=== PATIENT | male | born 1960 | race Caucasian/White ===

== ENCOUNTER 2020-08-18 08:59 | Outpatient (REF) | payer SELFPAY | END 2020-08-18 09:00 | disposition home or self-care (01) | LOC: HO.HAP 08:59 | PROVIDERS: PCP Internal Medicine; Referring Provider Internal Medicine; Visit Provider Internal Medicine | DX: Z13.89 Encounter for screening for other disorder (principal) | CPT/HCPCS: 92700 ==

== ENCOUNTER 2020-09-06 15:26 | Outpatient (REF) | payer SELFPAY | END 2020-09-06 15:27 | disposition home or self-care (01) | LOC: HO.HAP 15:26 | PROVIDERS: Visit Provider Internal Medicine | DX: H90.3 Sensorineural hearing loss, bilateral (principal); Z46.1 Encounter for fitting and adjustment of hearing aid | CPT/HCPCS: V5264 ==

== ENCOUNTER 2020-10-17 15:00 | Outpatient (REF) | payer SELFPAY | END 2020-10-17 15:01 | disposition home or self-care (01) | LOC: HO.HAP 15:00 | PROVIDERS: Visit Provider Internal Medicine | DX: Z13.89 Encounter for screening for other disorder (principal) ==

== ENCOUNTER 2020-10-19 11:46 | Outpatient (REF) | payer SELFPAY | END 2020-10-19 11:47 | disposition home or self-care (01) | LOC: HO.HAP 11:46 | PROVIDERS: Visit Provider Internal Medicine | DX: Z13.89 Encounter for screening for other disorder (principal) ==

== ENCOUNTER 2020-10-26 09:00 | Outpatient (REF) | payer SELFPAY | END 2020-10-26 09:01 | disposition home or self-care (01) | LOC: HO.HAP 09:00 | PROVIDERS: Visit Provider Internal Medicine | DX: Z13.89 Encounter for screening for other disorder (principal) ==

== ENCOUNTER 2021-04-17 09:30 | Outpatient (REF) | payer SELFPAY ==
--- NOTE | 2021-04-17 09:48 | MHC.AU.P13 ---
Hearing Instrument Maintenance Date of Visit: 04/17/21 Right Ear: Sponsorship Manager: Phonak Model: Versata M BTE Serial Number: [id number] Repair Warranty: Loss and Damage Warranty: Battery Size: 13 Color: JASON Tubing: Size 3B slim tube Type of Mold: Slim tip #[id number] Warranty 12/26/2020 Type of Wax Guard: None Dispensed By: [facility] Date of Fittin08/25/2009 Left Ear: Sponsorship Manager: Phonak Model: Versata M BTE Serial Number: [id number] Repair Warranty: Loss and Damage Warranty: Battery Size: 13 Color: JASON Tubing: Size 3B slim tube Type of Mold: Slim tip #[id number] Warranty 12/26/2020 Type of Wax Guard: None Dispensed By: [facility] Date of Fittin08/25/2009 Follow-Up Summary: VALDEZ's dropped off for maintenance. Hearing aids and slim tips cleaned, #3 slim tubes replaced, sofia covers replaced, both amplifying clearly. Recommendations: Recommendations: Hearing instrument follow-up or maintenance as needed. Diagnosis Code(s): Primary Diagnosis: H90.3 Bilateral Sensorineural Hearing Loss Signature: Provider: SHARONDA Junior-HIS
== END 2021-04-17 09:31 | disposition home or self-care (01) ==
LOC: HO.HAP 09:30
PROVIDERS: Visit Provider Internal Medicine
DX: Z46.1 Encounter for fitting and adjustment of hearing aid (principal); H90.3 Sensorineural hearing loss, bilateral
CPT/HCPCS: 99499

== ENCOUNTER 2021-08-13 09:18 | Outpatient (REF) | payer BC, SELFPAY ==
--- NOTE | 2021-08-15 15:34 | MHC.AU.AHA ---
Adult Audiological Evaluation Date of Visit: 08/13/21 Machine Zipper Trimmer Used: Not Applicable Reason for Appointment: Audiologic re-evaluation prior to obtaining new hearing aids. Previous Hearing Test Results: 03/24/2014 [facility] Bilateral borderline normal sloping to severe sensorineural hearing loss with 96% speech understanding for the right ear and 100% for the left ear. 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 Medication List: Lisinopril, Metformin, Aspirin, Atorvastatin, Jardiance, Insulin Hearing Instrument History- Right Ear: Automotive Internet Sales Manager: MeetMeTix Model: YOOWALK Serial Number: [id number] Battery Size: 13 Repair Warranty: Dispensed By: [facility] Date of Fittin08/25/2009 Hearing Instrument History- Left Ear: Automotive Internet Sales Manager: [employer]ix Model: YOOWALK Serial Number: [id number] Battery Size: 13 Warranty: Dispensed By: [facility] Date of Fittin08/25/2009 Otoscopy: Right Ear: Unremarkable Left Ear: Unremarkable Tympanometry: Tympanometry performed due to: To assess integrity of the middle ear system Right Ear: Normal Middle Ear System (Type A) Left Ear: Normal Middle Ear System (Type A) Hearing Evaluation: Transducer(s) Used: Insert Earphones Bone Conduction Method: Conventional Audiometry Stimuli Used: Pure Tones Right Ear: Description of Hearing: Borderline normal at 250 Hz, sloping to a severe high frequency sensorineural hearing loss. Left Ear: Description of Hearing: Mild sloping to severe sensorineural hearing loss. Speech Recognition Threshold (SRT): Method Used: Monitored Live Voice Stimuli Used: Spondee Words Right Ear: 30 dB HL Left Ear: 35 dB HL Word Discrimination: Method: Recorded Lists Word Lists Used: NU-6 Right Ear: 88% at 70 dB HL Left Ear: 84% at 75 dB HL Comparison: Compared to the most recent evaluation: Thresholds have slightly decreased bilaterally. Word discrimination scores have slightly decreased bilaterally. Recommendations: Trial with amplification is recommended. Medical clearance from a physician is required before fitting. Hearing Aid Fitting appointment has been scheduled for 11/08/2021 Audiological re-evaluation in one year. Will send a reminder card. Diagnosis: Primary Diagnosis: H90.3 Bilateral Sensorineural Hearing Loss Services Performed: Comprehensive Audiological Evaluation (CPT 26007) Limited Otoacoustic Emissions (CPT 81012) Signature: Provider: Suhail Manley, CCC-A
--- NOTE | 2021-08-15 16:47 | MHC.AU.AHA ---
Adult Audiological Evaluation Date of Visit: 08/13/21 Vp Hr Diversity Used: Not Applicable Reason for Appointment: Audiologic re-evaluation prior to obtaining new hearing aids. Previous Hearing Test Results: 03/24/2014 [facility] Bilateral borderline normal sloping to severe sensorineural hearing loss with 96% speech understanding for the right ear and 100% for the left ear. 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 Medication List: Lisinopril, Metformin, Aspirin, Atorvastatin, Jardiance, Insulin Hearing Instrument History- Right Ear: Adzing And Boring Machine Helper: Insight Guru Model: [email or web address] Serial Number: [id number] Battery Size: 13 Repair Warranty: Dispensed By: [facility] Date of Fittin08/25/2009 Hearing Instrument History- Left Ear: Adzing And Boring Machine Helper: Insight Guru Model: [email or web address] Serial Number: [id number] Battery Size: 13 Warranty: Dispensed By: [facility] Date of Fittin08/25/2009 Otoscopy: Right Ear: Unremarkable Left Ear: Unremarkable Tympanometry: Tympanometry performed due to: To assess integrity of the middle ear system Right Ear: Normal Middle Ear System (Type A) Left Ear: Normal Middle Ear System (Type A) Hearing Evaluation: Transducer(s) Used: Insert Earphones Bone Conduction Method: Conventional Audiometry Stimuli Used: Pure Tones Right Ear: Description of Hearing: Borderline normal at 250 Hz, sloping to a severe high frequency sensorineural hearing loss. Left Ear: Description of Hearing: Mild sloping to severe sensorineural hearing loss. Speech Recognition Threshold (SRT): Method Used: Monitored Live Voice Stimuli Used: Spondee Words Right Ear: 30 dB HL Left Ear: 35 dB HL Word Discrimination: Method: Recorded Lists Word Lists Used: NU-6 Right Ear: 88% at 70 dB HL Left Ear: 84% at 75 dB HL Comparison: Compared to the most recent evaluation: Thresholds have slightly decreased bilaterally. Word discrimination scores have slightly decreased bilaterally. Recommendations: Trial with amplification is recommended. Medical clearance from a physician is required before fitting. Hearing Aid Fitting appointment has been scheduled for 11/08/2021 Audiological re-evaluation in one year. Will send a reminder card. Diagnosis: Primary Diagnosis: H90.3 Bilateral Sensorineural Hearing Loss Services Performed: Comprehensive Audiological Evaluation (CPT 46817) Limited Otoacoustic Emissions (CPT 87581) Signature: Provider: Suhail Manley, CCC-A
== END 2021-08-13 09:19 | disposition home or self-care (01) ==
LOC: HO.SH 09:18
PROVIDERS: Visit Provider Family Medicine
DX: H90.3 Sensorineural hearing loss, bilateral (principal)
CPT/HCPCS: 92557; 92567; 92587

== ENCOUNTER 2021-08-13 10:20 | Outpatient (REF) | payer SELFPAY ==
--- NOTE | 2021-08-13 11:13 | MHC.AU.MED ---
Medical Clearance for Hearing Instrumentation Date: 08/13/21 Patient Name: Ed Thomas Date of : 1960 Primary Care Provider: Referring Provider: Ed Elizabeth MD We have seen your patient on 08/13/21 and have determined that they are a candidate for amplification (See accompanying report). Specifically, they would benefit from: Hearing aid use in both ears There is a statute that addresses Medical Evaluation Requirements prior to fitting a patient with a hearing aid. According to [place] statute 265 CMR:6.03(1), (a) General. Except as provided in 265 CMR 6.03(1)(b), a freight separator shall not sell a hearing aid unless the prospective user has presented to the freight separator a written statement signed by a licensed physician that states that the patient's hearing loss has been medically evaluated and the patient may be considered a candidate for a hearing aid. The medical evaluation must have taken place within the preceding six months. Please note: Due to the [place] Statute referenced above, we cannot accept a signature other than that of a licensed physician. [employer] and PA signatures cannot be accepted. I am in agreement with the above recommendation. There is no medical contraindication for hearing instrumentation. Physician Signature Date Physician Name (Printed)
--- NOTE | 2021-08-17 11:05 | MHC.AU.HAS ---
Hearing Aid Evaluation Date of Visit: 08/13/21 Historical Information: Description of Hearing: Borderline normal/mild thresholds sloping to severe sensorineural hearing loss bilaterally Current personal amplification information, if applicable: 2008 Binaural Phonak Versata M with slim tubes and custom slim tips Summary: Patient needs new hearing aids to better facilitate communication as current aids are 12 years old and ComPilot is not working. Hearing Aid Prescription: Based on the individual?s shared listening needs, communication environments, dexterity, desire for connectivity, and personal preferences, the following prescription for amplification has been made: Right ear: Senior Accounts Payable Specialist: Phonak Model: Audeo P 90-13T Battery Size: 13 Color: Silver Dee Ginger Farmer: #2 Medium Tubing: Size 3B slim tube Type of Mold: Canal C-Shell Left ear: Senior Accounts Payable Specialist: Phonak Model: Audeo P 90-13T Battery Size: 13 Color: Silver Dee Ginger Farmer: #2 Medium Tubing: Size 1B slim tube Type of Mold: Canal C-Shell Plan of Care: Patient wishes to purchase hearing aids as prescribed Action Taken/Action Needed: Medical Clearance to be requested from PCP/ENT Comments: Will order canal C-Shells using scans on file from 10/2020 Hearing Aid Fitting scheduled for 11/08/2021 Primary Diagnosis: H90.3 Bilateral Sensorineural Hearing Loss Signature: Provider: Suhail Manley, GIORGI-A
== END 2021-08-13 10:21 | disposition home or self-care (01) ==
LOC: HO.HAP 10:20
PROVIDERS: Visit Provider Internal Medicine
DX: Z46.1 Encounter for fitting and adjustment of hearing aid (principal); H90.3 Sensorineural hearing loss, bilateral
CPT/HCPCS: 92591

== ENCOUNTER 2021-11-08 10:28 | Outpatient (REF) | payer SELFPAY | END 2021-11-08 10:29 | disposition home or self-care (01) | LOC: HO.HAP 10:28 | PROVIDERS: Visit Provider Internal Medicine | DX: Z46.1 Encounter for fitting and adjustment of hearing aid (principal); H90.3 Sensorineural hearing loss, bilateral | CPT/HCPCS: V5261 ==

== ENCOUNTER 2021-11-23 09:59 | Outpatient (REF) | payer SELFPAY ==
--- NOTE | 2021-11-23 10:46 | MHC.AU.HFU ---
Hearing Instrument Follow-Up- Binaural Date of Visit: 11/23/21 Right Ear: Polo Coach: Phonak Model: Audeo P 90-13T Serial Number: [id number] Repair Warranty: 11/24/2024 Loss and Damage Warranty: 11/24/2024 Battery Size: 13 Color: Silver Dee Manufacturing Automation Engineer: #2 Medium Type of Mold: Canal C-Shell #[id number] Warranty 12/24/2021 Type of Wax Guard: CeruStop Dispensed By: [facility] Date of Fittin11/08/2021 Left Ear: Polo Coach: Phonak Model: Audeo P 90-13T Serial Number: [id number] Repair Warranty: 11/24/2024 Loss and Damage Warranty: 11/24/2024 Battery Size: 13 Color: Silver Dee Manufacturing Automation Engineer: #2 Medium Type of Mold: Canal C-Shell #[id number] Warranty 12/24/2021 Type of Wax Guard: CeruStop Dispensed By: [facility] Date of Fittin11/08/2021 Follow-Up Summary: Patient is doing very well with new aids. He noticed recently he was not able to hear an aluminum nail hit the concrete and still has to keep the volume of the TV up for better understanding. His seat is likely 12 feet from the TV and recommend either trying to connect his aids to his Smart TV or pair bluetooth speakers placed next to his seat to see if TV speech understanding improves. Increased 7034-8683 Hz overall and MPO 4 dB and now he was able to hear aluminum disk fall on the desk. Also discussed the automatic shifting of features occur in different environments, but he reports it is not bothersome, just different from the old aids. If further adjustments are needed, he will schedule an appointment. Recommendations:Hearing instrument follow-up or maintenance as needed. Please contact our clinic with any questions or concerns. Diagnosis Code(s): Primary Diagnosis: H90.3 Bilateral Sensorineural Hearing Loss Services Performed: VALDEZ Non-Quantity Charges: HANC: NonBillable Event Signature:Provider: Suhail Manley
== END 2021-11-23 10:00 | disposition home or self-care (01) ==
LOC: HO.HAP 09:59
PROVIDERS: Visit Provider Internal Medicine
DX: Z13.89 Encounter for screening for other disorder (principal)

== ENCOUNTER 2021-11-26 09:34 | Outpatient (REF) | payer SELFPAY | END 2021-11-26 09:35 | disposition home or self-care (01) | LOC: HO.HAP 09:34 | PROVIDERS: Visit Provider Internal Medicine | DX: Z13.89 Encounter for screening for other disorder (principal) ==

== ENCOUNTER 2022-01-07 11:40 | Outpatient (REF) | payer SELFPAY | END 2022-01-07 11:41 | disposition home or self-care (01) | LOC: HO.HAP 11:40 | PROVIDERS: Visit Provider Internal Medicine | DX: Z46.1 Encounter for fitting and adjustment of hearing aid (principal); H90.3 Sensorineural hearing loss, bilateral | CPT/HCPCS: V5267 ==

== ENCOUNTER 2022-03-27 12:10 | Outpatient (REF) | payer SELFPAY | END 2022-03-27 12:11 | disposition home or self-care (01) | LOC: HO.HAP 12:10 | PROVIDERS: Visit Provider Internal Medicine | DX: Z46.1 Encounter for fitting and adjustment of hearing aid (principal); H90.3 Sensorineural hearing loss, bilateral | CPT/HCPCS: V5267 ==

== ENCOUNTER 2022-04-01 08:47 | Outpatient (REF) | payer SELFPAY | END 2022-04-01 08:48 | disposition home or self-care (01) | LOC: HO.HAP 08:47 | PROVIDERS: Visit Provider Internal Medicine | DX: Z13.89 Encounter for screening for other disorder (principal) ==

== ENCOUNTER 2022-05-21 13:04 | Outpatient (REF) | payer SELFPAY | END 2022-05-21 13:05 | disposition home or self-care (01) | LOC: HO.HAP 13:04 | PROVIDERS: Visit Provider Internal Medicine | DX: Z46.1 Encounter for fitting and adjustment of hearing aid (principal); H90.3 Sensorineural hearing loss, bilateral | CPT/HCPCS: V5267 ==

== ENCOUNTER 2022-08-07 08:55 | Outpatient (REF) | payer SELFPAY ==
--- NOTE | 2022-08-07 09:54 | MHC.AU.HFU ---
Hearing Instrument Follow-Up- Binaural Date of Visit: 08/07/22 Right Ear: Manoj Powello P90-13T SN: [id number] Color: Silver Dee Repair Warranty: 11/24/2024 Loss and Damage Warranty: 11/24/2024 Battery Size: 13 Brass And Wind Instrument Repairer: 2M Type of Mold: Canal C-Shell #[id number] Warranty 12/24/2021 Type of Wax Guard: CeruStop Dispensed By: [facility] Date of Fittin11/08/2021 Left Ear: Manoj Powello P90-13T SN: [id number] Color: Silver Dee Repair Warranty: 11/24/2024 Loss and Damage Warranty: 11/24/2024 Battery Size: 13 Brass And Wind Instrument Repairer: 2M Type of Mold: Canal C-Shell #[id number] Warranty 12/24/2021 Type of Wax Guard: CeruStop Dispensed By: [facility] Date of Fittin11/08/2021 Follow-Up Summary: Ed returned for routine hearing aid maintenance. He reported that overall he is doing well with the hearing aids and is not experiencing any issues at this time. His hearing aids and ear molds were cleaned, the microphones were vacuumed, and the wax guards were replaced. Also cleaned the battery compartments and doors. A listening check demonstrated that the hearing aids are in good working order. Recommendations: Hearing instrument maintenance in 6 months, or sooner if needed. Please contact our clinic with any questions or concerns. Diagnosis Code(s): Primary Diagnosis: H90.3 Bilateral Sensorineural Hearing Loss Signature: Provider: Gladys Anna, [facility]
== END 2022-08-07 08:56 | disposition home or self-care (01) ==
LOC: HO.HAP 08:55
PROVIDERS: Visit Provider Internal Medicine
DX: Z13.89 Encounter for screening for other disorder (principal)

== ENCOUNTER 2023-02-26 14:20 | Outpatient (REF) | payer SELFPAY | END 2023-02-26 14:21 | disposition home or self-care (01) | LOC: HO.HAP 14:20 | PROVIDERS: Visit Provider Internal Medicine | DX: Z46.1 Encounter for fitting and adjustment of hearing aid (principal); H90.3 Sensorineural hearing loss, bilateral | CPT/HCPCS: V5267 ==

== ENCOUNTER 2023-02-27 08:33 | Outpatient (REF) | payer SELFPAY | END 2023-02-27 08:34 | disposition home or self-care (01) | LOC: HO.HAP 08:33 | PROVIDERS: Visit Provider Internal Medicine | DX: Z13.89 Encounter for screening for other disorder (principal) ==

== ENCOUNTER 2023-03-12 13:45 | Outpatient (REF) | payer SELFPAY | END 2023-03-12 13:46 | disposition home or self-care (01) | LOC: HO.HAP 13:45 | PROVIDERS: Visit Provider Internal Medicine | DX: Z13.89 Encounter for screening for other disorder (principal) ==

== ENCOUNTER 2023-06-24 09:54 | Outpatient (REF) | payer SELFPAY | END 2023-06-24 09:55 | disposition home or self-care (01) | LOC: HO.HAP 09:54 | PROVIDERS: Visit Provider Internal Medicine | DX: Z13.89 Encounter for screening for other disorder (principal) ==

== ENCOUNTER 2023-06-25 11:12 | Outpatient (REF) | payer SELFPAY | END 2023-06-25 11:13 | disposition home or self-care (01) | LOC: HO.HAP 11:12 | PROVIDERS: Visit Provider Internal Medicine | DX: Z13.89 Encounter for screening for other disorder (principal) ==

== ENCOUNTER 2023-07-16 14:06 | Outpatient (REF) | payer SELFPAY | END 2023-07-16 14:07 | disposition home or self-care (01) | LOC: HO.HAP 14:06 | PROVIDERS: Visit Provider Internal Medicine | DX: Z13.89 Encounter for screening for other disorder (principal) ==

== ENCOUNTER 2023-09-04 09:35 | Outpatient (REF) | payer SELFPAY | END 2023-09-04 09:36 | disposition home or self-care (01) | LOC: HO.HAP 09:35 | PROVIDERS: Visit Provider Internal Medicine | DX: Z46.1 Encounter for fitting and adjustment of hearing aid (principal); H90.3 Sensorineural hearing loss, bilateral | CPT/HCPCS: V5267 ==

== ENCOUNTER 2023-09-09 09:59 | Outpatient (REF) | payer SELFPAY ==
--- NOTE | 2023-09-09 11:55 | MHC.AU.HA3 ---
Hearing Instrument Follow-Up- Binaural Date of Visit: 09/09/2023 Right Ear: Ellis, Model, Color, Serial Number: Manoj Rosales P90-13T SN: [id number] Color: Silver Dee Photo Booth Operator Repair Warranty: 11/24/2024 Photo Booth Operator Loss and Damage Warranty: 11/24/2024 [facility] Service Plan: Battery Size: 13 Environmental Control Administrator/Slim Tube: 2M Earmold/Dome/CShell/SlimTip:Canal C-Shell #[id number] Warranty 12/24/2021 Type of Wax Guard: CeruStop Dispensed By: [facility] Date of Fittin11/08/2021 Left Ear: Ellis, Model, Color, Serial Number: Manoj Rosales P90-13T SN: [id number] Color: Silver Dee Photo Booth Operator Repair Warranty: 11/24/2024 Photo Booth Operator Loss and Damage Warranty: 11/24/2024 [facility] Service Plan: Battery Size: 13 Environmental Control Administrator/Slim Tube: 2M Earmold/Dome/CShell/SlimTip: Canal C-Shell #[id number] Warranty 12/24/2021 Type of Wax Guard: CeruStop Dispensed By: [facility] Date of Fittin11/08/2021 Follow-Up Summary: Pt reports that he had not been wearing his right aid recently due to an ear infection, but carrying it around to maintain streaming for the left aid, and now the camera control operator wire has broken. Swapped streaming settings in software, now left aid is the transmitter. Placed a loaner camera control operator on the right aid with a dome for him to use while the c-shell is out to have the wire replaced. Advised pt to continue not to use right aid at the moment as otoscopy reveals white debris in canal, may be from the cream his doctor has prescribed. He will be following up with his PCP. Pt to be called to pickling tank operator c-shell when it returns. Recommendations: Recommendations: Hearing instrument follow-up or maintenance as needed. Diagnosis Code(s): Primary Diagnosis: H90.3 Bilateral Sensorineural Hearing Loss Signature: Provider: Gladys Mancini, [facility]
== END 2023-09-09 10:00 | disposition home or self-care (01) ==
LOC: HO.HAP 09:59
DX: Z13.89 Encounter for screening for other disorder (principal)

== ENCOUNTER 2023-09-24 07:58 | Outpatient (REF) | payer SELFPAY ==
--- NOTE | 2023-09-24 09:12 | MHC.AU.HA3 ---
Hearing Instrument Follow-Up- Binaural Date of Visit: 09/24/23 Racebook Writer Used: Right Ear: Ellis, Model, Color, Serial Number: Manoj Rosales P90-13T SN: [id number] Color: Silver Dee Shredder Tender Peat Repair Warranty: 11/24/2024 Shredder Tender Peat Loss and Damage Warranty: 11/24/2024 [facility] Service Plan: Battery Size: 13 [employer] Healer/Slim Tube: 2M Earmold/Dome/CShell/SlimTip:Canal C-Shell #[id number] Warranty 12/24/2021 Type of Wax Guard: CeruStop Dispensed By: [facility] Date of Fittin11/08/2021 Left Ear: Ellis, Model, Color, Serial Number: Manoj Rosales P90-13T SN: [id number] Color: Silver Dee Shredder Tender Peat Repair Warranty: 11/24/2024 Shredder Tender Peat Loss and Damage Warranty: 11/24/2024 [facility] Service Plan: Battery Size: 13 [employer] Healer/Slim Tube: 2M Earmold/Dome/CShell/SlimTip: Canal C-Shell #[id number] Warranty 12/24/2021 Type of Wax Guard: CeruStop Dispensed By: [facility] Date of Fittin11/08/2021 Follow-Up Summary: Ed is here to pickup his repaired right c-shell. He reports his right ear still feels clogged, though overall the symptoms of his infection have improved. He has not seen his PCP since his last visit. Otoscopy shows a buildup what appears to be dark colored cerumen at the bottom of the canal, whereas notes from his last appointment report white debris consistent with infection. When attempting to insert his c-shell, he experienced discomfort and tightness, reportedly much less than when his infection began but still not back to his normal , and does not have a history of fit issues with his c-shell. He states he has an appointment with his PCP on Friday and will discuss next steps for treatment. He plans to leave his hearing aid out for the time being and will return if fit issues persist even after infection is cleared. Recommendations: Recommendations: Patient will call if problems persist. Diagnosis Code(s): Primary Diagnosis: H90.3 Bilateral Sensorineural Hearing Loss Signature: Provider: Suhail Vazquez, [facility]
== END 2023-09-24 07:59 | disposition home or self-care (01) ==
LOC: HO.HAP 07:58
PROVIDERS: Visit Provider Internal Medicine
DX: Z13.89 Encounter for screening for other disorder (principal)

== ENCOUNTER 2024-04-02 14:58 | Outpatient (REF) | payer SELFPAY | END 2024-04-02 14:59 | disposition home or self-care (01) | LOC: HO.HAP 14:58 | PROVIDERS: Visit Provider Internal Medicine | DX: Z13.89 Encounter for screening for other disorder (principal) ==